=== PATIENT | female | born 1985 | race Caucasian/White ===

== ENCOUNTER 2019-04-23 05:18 | Day surgery (SDC) | payer MEDICAID, OTHER ==
[2019-04-23] MEDS ORDERED: CEFAZOLIN 2 GM/50 ML (PMX) 50 ML IVPB (06:00)
[2019-04-23] MEDS ORDERED: ROCURONIUM 50 MG INJ (06:48)
[2019-04-23] MEDS ORDERED: SUCCINYLCHOLINE CHLORIDE 100 MG/5 ML SYG IV (06:48)
[2019-04-23] MEDS ORDERED: MIDAZOLAM 1 MG/ML 2 ML INJ (06:48)
[2019-04-23] MEDS ORDERED: PROPOFOL 20 ML (06:48)
[2019-04-23] MEDS ORDERED: FENTAnyl 50 MCG/ML VIAL (06:48)
[2019-04-23] MEDS ORDERED: ONDANSETRON 4 MG INJ (06:49)
[2019-04-23] MEDS ORDERED: KETOROLAC 30 MG INJ (06:49)
[2019-04-23 06:58] LABS: ADD MAN DIFF? NO
[2019-04-23] MEDS: LACTATED RINGER'S 1,000 ML IV (07:00)
[2019-04-23 07:04] LABS: WHITE BLOOD COUNT 6.7 10^3/ul (4.8-10.8)
[2019-04-23 07:04] LABS: BASOPHIL # 0.1 10^3/ul (0.0-0.1); EOSINOPHILS # 0.1 10^3/ul (0.0-0.5); EOSINOPHILS % 1.9 % (0.0-7.0); HEMATOCRIT 42.5 % (37.0-47.0); HEMOGLOBIN 13.7 g/dl (12.0-16.0); LYMPHOCYTES # 1.9 10^3/ul (0.8-2.9); MEAN CORPUSCULAR HEMOGLOBIN 27.2 pg (29.0-33.0); MEAN CORPUSCULAR HGB CONC 32.2 g/dl (32.0-37.0); MEAN CORPUSCULAR VOLUME 84.3 fl (82.0-101.0); MEAN PLATELET VOLUME 10.1 fl (7.4-10.4); MONOCYTE # 0.4 10^3/ul (0.3-0.9); MONOCYTES % 6.5 % (0.0-11.0); NEUTROPHIL # 4.2 10^3/ul (1.6-7.5); NEUTROPHILS % 62.2 % (39.0-77.0); PLATELET COUNT 369 10^3/UL (140-415); RED BLOOD COUNT 5.04 10^6/ul (4.20-5.40); RED CELL DISTRIBUTION WIDTH 13.7 % (11.5-14.5)
[2019-04-23 07:24] LABS: INR 0.91; PARTIAL THROMBOPLASTIN TIME 29.6 Sec (23.0-35.0); PROTIME 12.4 Sec (11.9-14.9)
[2019-04-23] MEDS ORDERED: BUPIVACAINE 0.5%/EPI (SDV) 30 ML INJ (07:31)
[2019-04-23] MEDS: BUPIVACAINE 0.5%/EPI (SDV) 30 ML INJ INJ (08:00)
[2019-04-23] MEDS ORDERED: GLYCOPYRROLATE 0.4 MG INJ (08:04)
[2019-04-23] MEDS ORDERED: NEOSTIGMINE 3 MG/3 ML SYRINGE (08:04)
[2019-04-23] MEDS ORDERED: OXYCODONE/ACETAMINOPHEN (5/325) TAB PO (09:00)
[2019-04-23] MEDS ORDERED: HYDROmorphONE 1 MG/5 ML IV SYRINGE IV (09:00)
== END 2019-04-23 10:15 | disposition home or self-care (01) ==
LOC: SDS 05:18
DX: Z30.2 Encounter for sterilization (principal); N83.8 Other noninflammatory disorders of ovary, fallopian tube and broad ligament
CPT/HCPCS: 58661; 85025; 85610; 85730; 88302; 93005